=== PATIENT | male | born 1970 | race Caucasian/White ===

== ENCOUNTER 2017-07-18 14:28 | Emergency (ER) | payer SELFPAY ==
[~2017-07-18] VITALS: Ht 185.4 cm; Wt 81.6 kg
--- OUTSIDE RECORDS SUMMARY | 2017-07-18 14:31 | XMS REPORT ---
Author Author [facility] Address Unknown Phone Unavailable Care Team Providers Care Heel Coverer Name Role Phone Unavailable Unavailable Problems This patient has no known problems. Allergies, Adverse Reactions, Alerts This patient has no known allergies or adverse reactions. Medications This patient has no known medications. Encounters Start Date/Time End Date/Time Encounter Type Admission Type Attending Clinicians Care Facility Care Department Encounter ID [id number] 00:00:00 2017-02-15 00:00:00 Outpatient [facility] [id number]
[2017-07-18] MEDS: LIDOCAINE HCL 1% LOCAL INJ 20 ML VIAL INJ ONE (15:10)
[2017-07-18 16:07] VITALS: BP 148/88
== END 2017-07-18 15:39 | disposition home or self-care (01) ==
LOC: ER 14:28
DX: S61.213A Laceration without foreign body of left middle finger without damage to nail, initial encounter (principal); S61.215A Laceration without foreign body of left ring finger without damage to nail, initial encounter; X58.XXXA Exposure to other specified factors, initial encounter; Y92.009 Unspecified place in unspecified non-institutional (private) residence as the place of occurrence of the external cause
CPT/HCPCS: 12002; 99283; J2001

== ENCOUNTER 2017-07-31 08:08 | Emergency (ER) | payer SELFPAY ==
[~2017-07-31] VITALS: Ht 185.4 cm; Wt 81.6 kg
--- OUTSIDE RECORDS SUMMARY | 2017-07-31 08:11 | XMS REPORT | Continuity of Care Document ---
Author Author [facility] Organization [facility] Address [address] [place] [place] [address] Phone Unavailable Care Team Providers Care Maintenance Team Leader Name Role Phone NO, PCP PCP Unavailable Insurance Providers Guarantor Tab Roque Address [address] [place] [address] Email [email or web address] Payer [employer] Policy Number [id number] Subscriber's Name Tab Roque Relationship 18 Self / Same As Patient Advance Directives Directive Response Recorded Date/Time Does the patient have an advance directive? No 07/22/07 5:26am If yes, is advance directive on file with [facility]? No 07/22/07 5:26am If not on file with [facility] will patient provide a copy? No 05/08/16 9:36pm Do you have a Directive to Physician? No 07/18/17 3:42pm Do you have a Medical Power of Supervisor [place]? No 07/18/17 3:42pm Do you have an out of hospital Do Not Resuscitate Order? No 07/18/17 3:42pm Do you have any special needs we should be aware of? No 07/18/17 3:42pm Do you have a support person here with you today? No 07/18/17 3:42pm Did patient receive Notice of Privacy Practices? Yes 07/18/17 3:42pm Did patient receive patient rights and responsibilities? Yes 07/18/17 3:42pm Problems No problem information available. Medications No medication information available. Social History Smoking Status Start Date Stop Date Current every day smoker Hospital Discharge Instructions No hospital discharge instruction information available. Plan of Care Discharge Date 07/18/17 3:39pm Disposition HOME, SELF-CARE Condition at Discharge Stable Instructions/Education Provided Laceration Forms Provided Work/School Excuse Prescriptions See Medication Section Referrals GAUDENCIO BARR MD Address: [address] [place] [address] Additional Instructions/Education 1. follow up with plastics doctor in 1-2 days without fail 2. return to ed as needed 3. finger splint Functional Status No functional status information available. Allergies, Adverse Reactions, Alerts Allergen Type Severity Reaction Status Last Updated Sumatriptan Allergy Intermediate Active 05/08/16 Immunizations No immunization information available. Vital Signs Acute Vital Signs Vital Response Date/Time Pulse Pulse Rate (adult) 88 bpm (60 - 90) 07/18/2017 4:07pm Respiratory Rate 20 bpm (12 - 24) 07/18/2017 4:07pm Blood Pressure 148/88 mm Hg 07/18/2017 4:07pm Height 6 ft 1 in 07/18/2017 2:44pm Weight 180 lb 07/18/2017 2:44pm Body Mass Index 23.7 kg/m^2 07/18/2017 2:44pm Results No relevant diagnostic test, laboratory data and/or discharge summary information available. Procedures No procedure information available. Encounters Encounter Location Arrival/Admit Date Discharge/Depart Date Attending Provider Departed Emergency Room [facility] 07/18/17 2:28pm 3:39pm HIMANSHU BATRES MD
[2017-07-31 09:45] VITALS: BP 156/90
== END 2017-07-31 10:00 | disposition home or self-care (01) ==
LOC: ER 08:08
DX: M79.645 Pain in left finger(s) (principal); L03.012 Cellulitis of left finger
CPT/HCPCS: 99283

== ENCOUNTER 2017-08-27 02:44 | Emergency (ER) | payer MEDICAID, MEDICARE, OTHER ==
[~2017-08-27] VITALS: Ht 185.4 cm; Wt 81.6 kg
--- OUTSIDE RECORDS SUMMARY | 2017-08-27 02:46 | XMS REPORT | Continuity of Care Document ---
Author Author [facility] Organization [facility] Address [address] [place] [place] [address] Phone Unavailable Care Team Providers Care Hadoop Analyst Name Role Phone NO, PCP PCP Unavailable Insurance Providers Guarantor Tab Roque Address [address] [place] [address] Email [email or web address] Payer [employer] Policy Number [id number] Subscriber's Name Tab Roque Relationship 18 Self / Same As Patient Advance Directives Directive Response Recorded Date/Time Does the patient have an advance directive? No 07/22/07 5:26am If yes, is advance directive on file with [facility]? No 07/22/07 5:26am If not on file with [facility] will patient provide a copy? No 05/08/16 9:36pm Do you have a Directive to Physician? No 07/31/17 8:35am Do you have a Medical Power of Research And Insights Executive? No 07/31/17 8:35am Do you have an out of hospital Do Not Resuscitate Order? No 07/31/17 8:35am Do you have any special needs we should be aware of? No 07/31/17 8:35am Do you have a support person here with you today? Yes 07/31/17 8:35am Did patient receive Notice of Privacy Practices? Yes 07/31/17 8:35am Did patient receive patient rights and responsibilities? Yes 07/31/17 8:35am Problems No problem information available. Medications No medication information available. Social History Smoking Status Start Date Stop Date Never Smoker Hospital Discharge Instructions No hospital discharge instruction information available. Plan of Care Discharge Date 07/31/17 10:00am Disposition HOME, SELF-CARE Condition at Discharge Stable Instructions/Education Provided Infection Control Wound Care (General) Forms Provided Work/School Excuse Prescriptions See Medication Section Additional Instructions/Education SOAK HAND FOR 20 MINUTES AT A TIME 3 TIMES A DAYS. HAVE WATER WARM CAN TOLERATE FOLLOW UP WITH DR ACUNA IF NOT BETTER IN 3 DAYS TAKE ANTIBIOTIC UNTIL GONE EVEN IF FINGER IS LOOKING BETTER RETURN TO ER IF WORSE IN ANY WAY KEEP FINGER CLEAN AND DRY Functional Status No functional status information available. Allergies, Adverse Reactions, Alerts Allergen Type Severity Reaction Status Last Updated Sumatriptan Allergy Intermediate Active 05/08/16 Immunizations No immunization information available. Vital Signs Acute Vital Signs Vital Response Date/Time Pulse Pulse Rate (adult) 73 bpm (60 - 90) 07/31/2017 9:45am Respiratory Rate 20 bpm (12 - 24) 07/31/2017 9:45am Blood Pressure 156/90 mm Hg 07/31/2017 9:45am Height 6 ft 1 in 07/31/2017 8:24am Weight 180 lb 07/31/2017 8:24am Body Mass Index 23.7 kg/m^2 07/31/2017 8:24am Results No relevant diagnostic test, laboratory data and/or discharge summary information available. Procedures Procedure Status Date Provider(s) RPR S/N/AX/GEN/[id number] Completed 07/18/17 Encounters Encounter Location Arrival/Admit Date Discharge/Depart Date Attending Provider Departed Emergency Room [facility] 07/31/17 8:08am 10:00am JEAN URENA MD Departed Emergency Room [facility] 07/18/17 2:28pm 3:39pm HIMANSHU BATRES MD
== END 2017-08-27 03:32 | disposition home or self-care (01) ==
LOC: ER 02:44
DX: M79.645 Pain in left finger(s) (principal); L03.012 Cellulitis of left finger
CPT/HCPCS: 99282

== ENCOUNTER 2019-01-26 21:43 | Emergency (ER) | payer SELFPAY ==
[~2019-01-26] VITALS: Ht 185.4 cm; Wt 81.6 kg
== END 2019-01-26 22:23 | disposition left against medical advice (07) ==
LOC: ER 21:43
DX: M25.511 Pain in right shoulder (principal)
CPT/HCPCS: 93005

== ENCOUNTER 2021-01-17 14:59 | Emergency (ER) | payer SELFPAY ==
[~2021-01-17] VITALS: Ht 185.4 cm; Wt 81.6 kg
[2021-01-17] MEDS ORDERED: PIPERACILLIN/TAZOBACTAM 4.5 GM in SODIUM CHLORIDE 0.9% 100 ML IV ONE (15:30)
[2021-01-17] MEDS ORDERED: PIPERACILLIN/TAZOBACTAM 3.375 GM in SODIUM CHLORIDE 0.9% 50ML 50 ML IV STA (15:35)
[2021-01-17] MEDS ORDERED: PIPERACILLIN/TAZOBACTAM 3.375 GM VIAL ONE (15:47)
[2021-01-17] MEDS ORDERED: SODIUM CHLORIDE 0.9% 100 ML ONE (15:47)
[2021-01-17] MEDS ORDERED: BACTRIM 400-801 EACH PO (16:02)
[2021-01-17] MEDS ORDERED: CEPHALEXIN500 MG PO (16:02)
== END 2021-01-17 16:04 | disposition home or self-care (01) ==
LOC: FSED 15:13
DX: L03.114 Cellulitis of left upper limb (principal); F11.10 Opioid abuse, uncomplicated
CPT/HCPCS: 80053; 85025; 99282; J2543 ×2; J7050